=== PATIENT | female | born 1955 | race Caucasian/White ===

== ENCOUNTER 2019-11-11 13:51 | Outpatient (CLI) | payer BC, SELFPAY ==
--- NOTE | ~2019-11-11 | XR_ITS ---
XR shoulder LT min 2V DATE: 11/11/2019 14:13 INDICATION: Left shoulder pain. No injury. TECHNIQUE: 4 views COMPARISON: None FINDINGS: Diffuse osteopenia. No fracture, dislocation, periosteal reaction or bone destruction. There is narrowing at the glenohum eral joint likely consistent with osteoarthritis. IMPRESSION: Osteopenia Degenerative change at the glenohumeral joint Reviewed, dictated and finalized at location A.
--- NOTE | ~2019-11-11 | XR_ITS ---
XR cervical spine min 6V DATE: 11/11/2019 14:13 INDICATION: Neck pain. No injury. TECHNIQUE: Flexion and extension lateral views. AP, open-mouth, lateral, swimmer views COMPARISON: None FINDINGS: There is mild anterolisthesis at C3-C4 in flexion, reduced in neutral and extension. There is moderate degenerative disc disease primarily at C5-6 and C6-7. C1 and C2 are normally aligned and the odontoid process is intact. No fracture or dislocation or lock ed facet or prevertebral soft tissue swelling. IMPRESSION: Mild anterolisthesis at C3-4 in flexion Mild to moderate degenerative disc disease at C5-6 and C6-7 Reviewed, dictated and finalized at location A.
== END 2019-11-11 13:52 | disposition home or self-care (01) ==
PROVIDERS: PCP Family Medicine; Visit Provider Nurse Practitioner
DX: M54.2 Cervicalgia (principal); M25.519 Pain in unspecified shoulder; M43.12 Spondylolisthesis, cervical region; M50.320 Other cervical disc degeneration, mid-cervical region, unspecified level
CPT/HCPCS: 72052; 73030

== ENCOUNTER → 2020-05-06 14:14 | Outpatient (CLI) | payer BC, SELFPAY ==
--- NOTE | ~2020-05-06 | US_ITS ---
EXAMINATION: US venous doppler LE RT DATE: 05/06/2020 14:47 INDICATION: Right lower limb pain and edema. TECHNIQUE: Grayscale ultrasound images without and with compression and Doppler ultrasound images of the right lower extremity veins were obtained. COMPARISON: Ultrasound 01/01/2018 FINDINGS: The visualized portions of right common femoral vein, profunda (deep) femoral vein, femoral vein, pop liteal vein, peroneal veins, posterior tibial veins, and greater saphenous vein outflow are patent. IMPRESSION: 1. No deep venous thrombosis. Reviewed, dictated and finalized at location A. [employer]
== END ==
PROVIDERS: PCP Internal Medicine; Visit Provider Internal Medicine
DX: R60.0 Localized edema (principal)
CPT/HCPCS: 93971

== ENCOUNTER 2021-12-03 06:12 | Emergency (ER) | payer BC, SELFPAY ==
[2021-12-03] VITALS (17 sets, daily range): BP systolic 173; BP diastolic 123; PULSE 102; RESP 16; TEMP 37.2; O2SAT 88–100
--- NOTE | ~2021-12-03 | CT_ITS ---
EXAMINATION: CT abdomen pelvis w con DATE: 12/03/2021 07:50 INDICATION: Mid abdominal severe pain radiating to left side. Nausea and vomiting. TECHNIQUE: Computed tomography (CT) of the abdomen and pelvis was performed with 100 CC Omnipaque 300 intravenous contrast. Automated exposure control and iterative reconstruction technique were employe d. Exam dose: 1549.58 mGy-cm total exam DLP. COMPARISON: 12/16/2011 CT renal scan FINDINGS: The lung bases are clear. Heart size is within normal limits. No pericardial or pleural eff usion. Diffuse hepatic steatosis. The gallbladder is distended. No gallbladder wall thickening or pericholec ystic fluid or fat stranding. No bile duct or pancreatic duct dilatation. No pancreatic mass lesion, calcification. Normal splenic size. Normal morphology of the adrenal glands. There are 3 renal cysts measuring up to 1 cm dimension. No left renal mass lesion. There is extensive calcification of the abdominal aorta but no aneurysm. There is prominent calcifica tion at the origin of the celiac and superior mesenteric and renal arteries. No intraperitoneal or retroperitoneal or pelvic mass lesion or adenopathy or ascites. The uterus, adnexal areas and urinary bladder are unremarkable. Normal appendix. Slight colonic diverticulosis. No diverticulitis. No bowel obstruction, bowel wall t hickening, pneumatosis or intraperitoneal free air. 6 mm left renal cyst. There are prominent irregular areas of diminished contrast enhancement of the renal parenchyma at the mid and upper pole on the left. Diffusion diagnosis includes acute pyelonephritis, infarcts or less likely left renal neoplasm. Correlation with urinalysis is recommended. Prominent degenerative spurring of the lower thoracic spine. Severe degenerative disc disease at L5-S1. Prominent degenerative change at the apophyseal joints wit h associated grade 1 anterolisthesis at L4-5 and L5-S1. No suspicious osteolytic or osteosclerotic lesion is evident. IMPRESSION: Prominent irregular areas of diminished enhancement of the mid and upper left kidney, florez ggesting acute pyelonephritis. Differential diagnosis includes less likely infarction or neoplasm. Cl inical correlation is advised. Follow-up CT imaging or MR examination may be of benefit as clinically appropriate. Hepatic steatosis Small bilateral renal cysts Extensive atherosclerosis Normal appendix Slight diverticulosis of the colon Reviewed, dictated and finalized at Location A. Reviewed, dictated and finalized at location A. IMPRESSION: Prominent irregular areas of diminished enhancement of the mid and upper left kidney, suggesting acute pyelonephritis. Differential diagnosis inc ludes less likely infarction or neoplasm. Clinical correlation is advised. Foll ow-up CT imaging or MR examination may be of benefit as clinically appropriate. Hepatic steatosis Small bilateral renal cysts Extensive atherosclerosis Normal appendix Slight diverticulosis of the colon
[2021-12-03 06:35] LABS: Basophils Percent Auto 0.4 % (0.2-1.2); Eosinophils Percent Auto 0.3 % (0-4.4); Hematocrit 39.5 % (37.0-47.0); Immature Granulocyte Absolute 0.06 K/mm3 (0.00-0.031); Immature Granulocyte Percent A 0.5 % (0-0.5); Lymphocytes Percent Auto 19.9 % (18.3-44.2); Mean Corpuscular HGB Conc 32.9 g/dl (32-36); Mean Corpuscular Hemoglobin 29.5 pg (26-34); Mean Corpuscular Volume 89.6 fl (80-100); Mean Platelet Volume 11.2 fl (7.4-10.4); Monocytes Absolute Auto 0.6 K/mm3 (0.1-0.6); Monocytes Percent Auto 5.2 % (2.6-8.5); Neutrophils Absolute Auto 8.1 K/mm3 (1.3-6.7); Neutrophils Percent Auto 73.7 % (45.5-73.1); Platelet Count Result 319 k/mm3 (150-375); Red Blood Count 4.41 M/mm3 (4.2-5.4); Red Cell Distribution Width 12.7 % (11.5-14.5); White Blood Count 11.1 K/mm3 (4.5-10.0)
[2021-12-03 06:46] LABS: Alanine Aminotransferase 29 U/L (6-35); Albumin Level 4.7 g/dL (3.5-5.1); Alkaline Phosphatase 37 U/L (38-126); Anion Gap 11 mmol/L (8-16); Aspartate Amino Transferase 36 U/L (14-36); Bilirubin,Total 0.5 mg/dL (0.2-1.3); Blood Urea Nitrogen 22 mg/dL (7-17); Calcium 9.7 mg/dL (8.4-10.2); Carbon Dioxide 19 mmol/L (22-30); Chloride 104 mmol/L (98-107); Estimated CRCL calculation 82 ml/min; Estimated Glomerular Filt Rate > 60; Glucose 161 mg/dL (65-110); Lipase 196 U/L (23-300); Potassium 4.3 mmol/L (3.4-5.0); Sodium 134 mmol/L (137-145)
[2021-12-03 07:02] LABS: Appearance Urine Clear (Clear); Bilirubin Urine Negative (Negative); Blood Urine Negative (Negative); Color Urine Yellow (Yellow); Glucose Urine UA Trace mg/dL (Negative); Ketones Urine Negative (Negative); Leukocyte Esterase Ur Negative LEU/UL (Negative); Nitrate Urine Negative (Negative); Protein Urine 1+ mg/dL (Negative); Specific Grav Ur >= 1.030 (1.001-1.035); Urobilinogen Urine 0.2 mg/dL (<2.0); pH Urine 5.5 (5.0-9.0)
[2021-12-03 07:12] LABS: Bacteria Urine Trace /hpf; Mucus Urine Rare /lpf; RBC Urine 0-2 /hpf (0-2); Squamous Epithelial Cell Urine Moderate /hpf (Few)
[2021-12-03 07:14] LABS: Add Urine Microscopic? YES
--- NOTE | 2021-12-03 07:18 | ED.GENADULT ---
HPI - General Adult General Chief complaint: Abdominal Pain Stated complaint: abd pain Time Seen by Provider: 12/03/21 06:51 History of Present Illness HPI narrative: 66-year-old female presenting to the emergency department for evaluation of nausea vomiting with associated abdominal pain. Patient states yesterday she did have [employer] for lunch. Patient states she then began to develop some left lower quadrant pain. Patient did develop some nausea and vomiting later in the day and this has persisted through the night. Patient now describes diffuse abdominal pain with persistent nausea and vomiting. Patient states she is not having any diarrhea. Patient states she is not passing much flatus. Patient denies any prior post surgical history for her abdomen. Related Data Home Medications Medication Instructions Recorded Confirmed evening primrose oil 500 mg capsule 500 mg PO TID 11/11/19 mecobalamin (vitamin B12) 5,000 5,000 mcg PO DAILY 11/11/19 mcg lozenge pyridoxine (vitamin B6) 100 mg 100 mg PO DAILY 11/11/19 tablet Allergies Allergy/AdvReac Type Severity Reaction Status Date / Time levofloxacin Allergy Unknown Muscle Verified 12/03/21 06:15 weakness prednisone Allergy Unknown Other Verified 12/03/21 06:15 Review of Systems Review of Systems: CONSTITUTIONAL: Denies fever, chills, or sweats. EYES: Denies visual changes, redness, or discharge. ENT: Denies rhinorrhea, congestion, sore throat, or otalgia. CARDIOVASCULAR: Denies chest pain, palpitations, or edema. RESPIRATORY: Denies cough or dyspnea. GASTROINTESTINAL: See HPI GENITOURINARY: Suprapubic abdominal pain SKIN: Denies rash or itching. MUSCULOSKELETAL: Denies back pain, joint pain, or myalgia. NEUROLOGIC: Denies headache, numbness, or weakness. [facility] Past Medical History Medical History (Updated 12/03/21 @ 08:48 by Andreas Mars MD) Essential (primary) hypertension Hyperlipidemia, unspecified Sebaceous cyst Spinal stenosis of lumbar region with radiculopathy Surgical History Surgical History (Updated 04/11/19 @ 07:34 by Duran Hamilton MD) History of epidermal inclusion cyst excision Family History Family History (Updated 01/15/18 @ 13:45 by DOCTOR UNKNOWN) Grandparent Diabetes mellitus Family history of cardiovascular disease Acute myocardial infarction Father Family history of osteoporosis Cerebrovascular accident Family history of primary malignant neoplasm of liver Family history of malignant neoplasm of urinary bladder Mother Hypertension Other Family history of arthritis Family history of malignant neoplasm Social History Social History Smoking status: Never smoker Alcohol intake: current Gender identity (if verbalized by the patient): Female Exam Narrative: APPEARANCE: Well appearing, no pain, no distress, well-nourished. HEAD: normocephalic, atraumatic. EYES: PERRLA/EOMI, conjunctivae clear. NOSE: Normal no drainage EARS:TMS clear with good light reflex. THROAT: Pharynx clear, no exudate. NECK: Supple. No adenopathy, no masses. RESPIRATORY: Airway patent, respirations nonlabored. Clear to auscultation bilaterally, no rales, rhonchi, wheezing. CARDIOVASCULAR: Regular rate and rhythm without murmurs rubs or gallops. ABDOMINAL: Normal bowel sounds, no CVA tenderness to palpation. Patient does have suprapubic tenderness to palpation. MUSCULOSKELETAL: Moves all extremities. Strength/ROM intact, No edema, No calf tenderness. NEURO: Alert. Cranial nerves II through XII intact. Grossly intact SKIN: Warm, dry. Normal Color Course Course Emergency Course: Patient was treated for a urinary tract infection. Patient does have a leukocytosis of 11.1. Patient was afebrile. Patient did have trace bacteria trace whites on her UA. CT was concerning for possibility of urinary tract infection versus pyelonephritis. Patient does have reproducible suprapubic tende
[2021-12-03] MEDS: HYDROmorphone HCL INJ (*CRX) 1 MG/ML SYR 0.5 MG IV PUSH (07:30)
[2021-12-03] MEDS: ONDANSETRON INJ 4 MG/2 ML VIAL IV PUSH (07:31)
--- NOTE | 2021-12-14 16:28 | PC.NURSE ---
Addendum entered by Faby Duran RN 12/18/21 10:10: CEftepine infused. zero left in container Original Note: LATE ENTRY This note is being entered to document information to the patient's record. The following information was omitted on [12/03/21], by [Faby Duran RN]. Ceftriaxone infused at 0910.
--- NOTE | 2021-12-18 10:08 | PC.NURSE ---
LATE ENTRY This note is being entered to document information to the patient's record. The following information was omitted on [12/03/21], by [Federica CHONG].
== END 2021-12-03 10:33 | disposition home or self-care (01) ==
PROVIDERS: Emergency Medicine; Emergency Provider Emergency Medicine
DX: N39.0 Urinary tract infection, site not specified (principal); R11.2 Nausea with vomiting, unspecified; I10 Essential (primary) hypertension; E78.5 Hyperlipidemia, unspecified; K57.90 Diverticulosis of intestine, part unspecified, without perforation or abscess without bleeding; N28.1 Cyst of kidney, acquired; K76.0 Fatty (change of) liver, not elsewhere classified
CPT/HCPCS: 36415; 74177; 80053; 81001; 81025; 83690; 85025; 96365; 96375; 99284; J0696; J1170; J2405; Q9967

== ENCOUNTER 2021-12-03 17:09 | Observation (INO) | payer BC, SELFPAY ==
--- NOTE | ~2021-12-03 | NM_ITS ---
EXAMINATION: NM hepatobiliary w pharm DATE: 12/05/2021 13:11 INDICATION: Nausea and vomiting COMPARISON: Ultrasound dated 12/05/2021 TECHNIQUE: 5.2 mCi Tc-99m mebrofenin (Choletec) was administered intravenously. Scintigraphic images of the abdomen were obtained for one hour. 2.7 mcg sincalide (Kinevac) was administered by slow intr avenous infusion, and imaging was continued for 30 minutes. Gallbladder ejection fraction was calcula abi by the technologist. FINDINGS: There is normal clearance of radiotracer from the blood pool. There is homogeneous tracer uptake by t he liver. Activity progresses to the gallbladder and bowel. The gallbladder ejection fraction (GBEF) is 69% (normal 10-90%, but most patient with gallbladder dysfunction have GBEF < 35% which does over lap with the normal range). IMPRESSION: 1. Normal hepatobiliary scan. Reviewed, dictated and finalized at location A.
--- NOTE | ~2021-12-03 | US_ITS ---
EXAMINATION: US renal BI DATE: 12/04/2021 11:14 INDICATION: Abnormal kidney on CT scan TECHNIQUE: Multiple grayscale and Doppler ultrasound images of the kidneys were obtained. COMPARISON: CT abdomen and pelvis 12/03/2021. FINDINGS: The right kidney measures 11.5 x 4.9 x 6.7 cm. The left kidney measures 11.5 x 5.3 x 6.4 cm. The kidn eys demonstrate normal parenchymal echogenicity.No sonographic evidence of nephrolithiasis. No mass. No hydronephrosis. The bladder is normal. Bilateral ureteral jets IMPRESSION: 1. Normal renal sonogram findings. 2. Abnormalities detected by CT are not sonographically visible, prior recommendations are unchanged. Reviewed, dictated and finalized at location K. IMPRESSION: 1. Normal renal sonogram findings. 2. Abnormalities detected by CT are not sonographically visible, prior recommen dations are unchanged.
--- NOTE | ~2021-12-03 | US_ITS ---
EXAMINATION: US abdomen limited DATE: 12/05/2021 11:31 INDICATION: Nausea and vomiting TECHNIQUE: Multiple grayscale and Doppler ultrasound images of the abdomen were obtained. COMPARISON: CT dated 12/03/2021 FINDINGS: The pancreatic head and body are normal in appearance. The pancreatic tail is not visualized. Liver has normal contour, with a smooth surface. There is increased parenchymal echogenicity and coarsened echotexture consistent with diffuse hepatic steatosis. No liver lesion identified. No intrahepatic b iliary duct dilation suspected. Portal venous flow was seen in the hepatopetal, normal direction and has normal Doppler waveform. The gallbladder is normal in appearance. There is no cholelithiasis. Th e common bile duct measures 6 mm, which is normal. Sonographic Uribe sign was reported as negative b y the satellite installation technician. Visualized portion of the right kidney demonstrates normal echogenicity and contou r with no hydronephrosis. Corticomedullary IMPRESSION: 1. Diffuse hepatic steatosis. Reviewed, dictated and finalized at location A.
[2021-12-03 17:11] VITALS: BP 180/98; PULSE 73; RESP 20; TEMP 36.6; O2SAT 98
--- NOTE | 2021-12-03 17:33 | ED.GENADULT ---
HPI - General Adult General Chief complaint: Nausea/Vomiting/Diarrhea Stated complaint: N/V UTI 2ND VISIT Time Seen by Provider: 12/03/21 17:23 History of Present Illness HPI narrative: 66-year-old female returning to the emergency department for evaluation of persistent nausea and vomiting. Patient was evaluated emergency department earlier in the day and was diagnosed with a urinary tract infection. Patient states that when going home she had attempted to eat solid food including scrambled eggs and had subsequent nausea and vomiting. Patient became concerned so she presented to the emergency department for reevaluation. Related Data Home Medications Medication Instructions Recorded Confirmed evening primrose oil 500 mg capsule 500 mg PO BID 11/11/19 12/03/21 mecobalamin (vitamin B12) 5,000 5,000 mcg PO DAILY 11/11/19 12/03/21 mcg lozenge atorvastatin 20 mg tablet 20 mg PO DAILY 12/03/21 12/03/21 fenofibrate micronized 134 mg 134 mg PO QPM 12/03/21 12/03/21 capsule zolpidem 5 mg tablet 5 mg PO HS PRN sleep 12/03/21 12/03/21 Allergies Allergy/AdvReac Type Severity Reaction Status Date / Time levofloxacin Allergy Unknown Muscle Verified 12/03/21 19:51 weakness Review of Systems Review of Systems: CONSTITUTIONAL: Denies fever, chills, or sweats. EYES: Denies visual changes, redness, or discharge. ENT: Denies rhinorrhea, congestion, sore throat, or otalgia. CARDIOVASCULAR: Denies chest pain, palpitations, or edema. RESPIRATORY: Denies cough or dyspnea. GASTROINTESTINAL: See HPI GENITOURINARY: Denies dysuria or hematuria. SKIN: Denies rash or itching. MUSCULOSKELETAL: Denies back pain, joint pain, or myalgia. NEUROLOGIC: Denies headache, numbness, or weakness. [facility] Past Medical History Medical History Essential (primary) hypertension Hyperlipidemia, unspecified Sebaceous cyst Spinal stenosis of lumbar region with radiculopathy Surgical History Surgical History History of epidermal inclusion cyst excision Family History Family History Grandparent Diabetes mellitus Family history of cardiovascular disease Acute myocardial infarction Father Family history of osteoporosis Cerebrovascular accident Family history of primary malignant neoplasm of liver Family history of malignant neoplasm of urinary bladder Mother Hypertension Other Family history of arthritis Family history of malignant neoplasm Social History Social History Smoking status: Never smoker Alcohol intake: never Substance use: never Substance use type: does not use Gender identity (if verbalized by the patient): Female Spiritual care concerns: No Exam Narrative: APPEARANCE: Well appearing, no pain, no distress, well-nourished. HEAD: normocephalic, atraumatic. EYES: PERRLA/EOMI, conjunctivae clear. NOSE: Normal no drainage NECK: Supple. No adenopathy, no masses. RESPIRATORY: Airway patent, respirations nonlabored. Clear to auscultation bilaterally, no rales, rhonchi, wheezing. CARDIOVASCULAR: Regular rate and rhythm without murmurs rubs or gallops. ABDOMINAL: Soft, suprapubic tenderness to palpation. No CVA tenderness to palpation. MUSCULOSKELETAL: Moves all extremities. Strength/ROM intact, No edema, No calf tenderness. NEURO: Alert. Cranial nerves II through XII intact. Grossly intact SKIN: Warm, dry. Normal Color PSYCHIATRIC: Normal affect/mood. Course Course Emergency Course: Discussed case with the hospitalist and patient will be admitted for treatment for nausea vomiting and suspected urinary tract infection. Additional inpatient work-up as needed. Patient was updated on the results of the labs and imaging. All questions concerns were address
[2021-12-03 17:46] VITALS: BP 178/80; PULSE 81; RESP 20; O2SAT 98
[2021-12-03 17:52] LABS: Basophils Percent Auto 0.2 % (0.2-1.2); Eosinophils Percent Auto 0.1 % (0-4.4); Hematocrit 38.8 % (37.0-47.0); Hemoglobin 12.8 g/dL (12.0-15.0); Immature Granulocyte Absolute 0.07 K/mm3 (0.00-0.031); Immature Granulocyte Percent A 0.4 % (0-0.5); Lymphocytes Absolute Auto 1.97 K/mm3 (0.9-3.2); Lymphocytes Percent Auto 12.5 % (18.3-44.2); Mean Corpuscular Hemoglobin 29.5 pg (26-34); Mean Corpuscular Volume 89.4 fl (80-100); Mean Platelet Volume 10.6 fl (7.4-10.4); Monocytes Percent Auto 6.3 % (2.6-8.5); Neutrophils Absolute Auto 12.7 K/mm3 (1.3-6.7); Neutrophils Percent Auto 80.5 % (45.5-73.1); Platelet Count Result 292 k/mm3 (150-375); Red Blood Count 4.34 M/mm3 (4.2-5.4); Red Cell Distribution Width 12.7 % (11.5-14.5); White Blood Count 15.8 K/mm3 (4.5-10.0)
--- NOTE | 2021-12-03 17:57 | PM.IMHP ---
H&P: HPI History of Present Illness Date/Time: 12/03/21 17:45 Chief Complaint: Abdominal pain with nausea and vomiting Narrative: this 66-year-old female patient with significant past medical history of hypertension, hyperlipidemia, spinal stenosis, sebaceous cyst, B12 deficiency presents to the emergency room independently ambulatory for the 2nd time today with complaints of having lower abdominal pain with nausea and vomiting. Patient was evaluated earlier this morning with complaints of having acute nausea and vomiting beginning yesterday afternoon after eating [employer]. This was accompanied by left lower quadrant abdominal pain that moved to suprapubic. She denied any diarrhea. Presenting to the emergency room workup was performed that showed mild leukocytosis, trace bacteria wbc's in UA and CT of the abdomen and pelvis demonstrated UTI versus pyelo. Patient was given an oral challenge as well as medications and she had interval improvement while here in the emergency room and was therefore discharged home on a clear liquid diet, Zofran and Keflex. Upon returning home she did not adhere to the diet instructions and ate solid food or attempted to eat solid food and the patient began having nausea with vomiting again. She returned to the emergency room stating she does not want to continue to feel like this this evening. She denies any chest pain and/or dyspnea or urinary complaints of burning urgency frequency or hematuria but she does have complaints of some pain in her back that is different than her normal pain she has with spinal stenosis. She is agreeable to admission at this time for IV hydration, treatment for the suggested pyelonephritis that was noted on CT scan and for pain control. Review of Systems Review of Systems: All systems reviewed & are unremarkable except as noted in HPI and below PMFSH Past Medical History Medical History Essential (primary) hypertension Hyperlipidemia, unspecified Sebaceous cyst Spinal stenosis of lumbar region with radiculopathy Surgical History Surgical History History of epidermal inclusion cyst excision Family History Family History Grandparent Diabetes mellitus Family history of cardiovascular disease Acute myocardial infarction Father Family history of osteoporosis Cerebrovascular accident Family history of primary malignant neoplasm of liver Family history of malignant neoplasm of urinary bladder Mother Hypertension Other Family history of arthritis Family history of malignant neoplasm Social History Social History Smoking status: Never smoker Alcohol intake: current Gender identity (if verbalized by the patient): Female Meds Home Medications and Allergies Home Medications Medication Instructions Recorded Confirmed Type zolpidem 5 mg tablet See Rx Instructions PO .at bedtime 08/15/19 Rx PRN sleep #30 tabs evening primrose oil 500 mg capsule 500 mg PO TID 11/11/19 History mecobalamin (vitamin B12) 5,000 5,000 mcg PO DAILY 11/11/19 History mcg lozenge pyridoxine (vitamin B6) 100 mg 100 mg PO DAILY 11/11/19 History tablet metoprolol tartrate 50 mg tablet 50 mg PO BID #180 tabs 12/11/19 Rx lisinopril 20 mg tablet 20 mg PO BID #180 tabs 12/31/19 Rx fenofibrate micronized 134 mg See Rx Instructions .Route 05/25/20 Rx capsule .COMPLEX #90 caps atorvastatin 20 mg tablet See Rx Instructions .Route 09/14/20 Rx .COMPLEX #90 tabs cephalexin 250 mg capsule 250 mg PO Q6H 7 days #28 caps 12/03/21 Rx ondansetron 4 mg disintegrating 4 mg PO Q8H PRN nausea and 12/03/21 Rx tablet vomiting #14 tabs Allergies Allergy/AdvReac Type Severity Reaction Status Date / Time levof
[2021-12-03] MEDS: ONDANSETRON INJ 4 MG/2 ML VIAL IV PUSH ×2 (17:58→22:09)
[2021-12-03 18:02] LABS: Alanine Aminotransferase 35 U/L (6-35); Albumin Level 4.5 g/dL (3.5-5.1); Alkaline Phosphatase 39 U/L (38-126); Anion Gap 8 mmol/L (8-16); Aspartate Amino Transferase 54 U/L (14-36); Bilirubin,Total 0.5 mg/dL (0.2-1.3); Blood Urea Nitrogen 19 mg/dL (7-17); Calcium 9.6 mg/dL (8.4-10.2); Carbon Dioxide 24 mmol/L (22-30); Chloride 102 mmol/L (98-107); Estimated Glomerular Filt Rate > 60; Glucose 138 mg/dL (65-110); Potassium 4.2 mmol/L (3.4-5.0); Sodium 134 mmol/L (137-145)
[2021-12-03] MEDS: METOCLOPRAMIDE HCL INJ 10 MG/2 ML VIAL IV PUSH (18:33)
[2021-12-03 18:50] LABS: SARS-CoV-2 RNA PCR Negative
--- NOTE | 2021-12-03 19:49 | ADMGEN ---
This patient, Allyson Dunn, was admitted to 2 Medical Room 250-01 @ 1950 Patient/family oriented to hospital policies and general routines including ID bracelet, bed and alarms, visiting hours, pain management, procedures, bathroom and other care routines, personal items, smoking policy, room service/diet, and visiting hours. Information on how to activate the Rapid Response Team has been discussed. Patient/Family are encouraged to report perceived risks to care and to ask questions if they do not understand what they are told or what they should do.
[2021-12-03] MEDS: SODIUM CHLORIDE 0.9% IV 1,000 ML 100 ML IV CONT (20:02)
[2021-12-03 21:17] VITALS: PULSE 67
[2021-12-03 21:18] VITALS: BP 151/69; PULSE 71; RESP 20; TEMP 36.5; O2SAT 98; BMI 39.7
[2021-12-03 22:00] VITALS: PULSE 78; RESP 16; O2SAT 97
[2021-12-03] MEDS: KETOROLAC 30 MG/ML VIAL (*BKC) IV PUSH (22:05)
[2021-12-03] MEDS: ZOLPIDEM TARTRATE (*CRX) 5 MG TABLET PO (22:09)
[2021-12-04] VITALS (12 sets, daily range): BP systolic 124–155; BP diastolic 68–75; PULSE 55–82; RESP 15–18; TEMP 36.4–36.9; O2SAT 97–99
[2021-12-04 05:16] LABS: Basophils Percent Auto 0.2 % (0.2-1.2); Eosinophils Absolute Auto 0.1 K/mm3 (0-0.3); Eosinophils Percent Auto 0.6 % (0-4.4); Hemoglobin 11.3 g/dL (12.0-15.0); Immature Granulocyte Absolute 0.03 K/mm3 (0.00-0.031); Immature Granulocyte Percent A 0.3 % (0-0.5); Lymphocytes Percent Auto 30.2 % (18.3-44.2); Mean Corpuscular HGB Conc 31.4 g/dl (32-36); Mean Corpuscular Hemoglobin 29.1 pg (26-34); Mean Corpuscular Volume 92.8 fl (80-100); Mean Platelet Volume 10.4 fl (7.4-10.4); Monocytes Absolute Auto 1.1 K/mm3 (0.1-0.6); Neutrophils Absolute Auto 6.6 K/mm3 (1.3-6.7); Neutrophils Percent Auto 58.7 % (45.5-73.1); Platelet Count Result 232 k/mm3 (150-375); Red Blood Count 3.88 M/mm3 (4.2-5.4); White Blood Count 11.3 K/mm3 (4.5-10.0)
[2021-12-04 05:30] LABS: Alanine Aminotransferase 30 U/L (6-35); Albumin Level 3.7 g/dL (3.5-5.1); Alkaline Phosphatase 34 U/L (38-126); Anion Gap 3 mmol/L (8-16); Aspartate Amino Transferase 45 U/L (14-36); Bilirubin,Total 0.3 mg/dL (0.2-1.3); Blood Urea Nitrogen 19 mg/dL (7-17); Calcium 8.7 mg/dL (8.4-10.2); Carbon Dioxide 27 mmol/L (22-30); Chloride 104 mmol/L (98-107); Estimated CRCL calculation 68 ml/min; Estimated Glomerular Filt Rate 50; Glucose 114 mg/dL (65-110); Lipase 104 U/L (23-300); Magnesium 1.8 mg/dL (1.6-2.3); Potassium 4.2 mmol/L (3.4-5.0); Sodium 134 mmol/L (137-145)
[2021-12-04] MEDS: KETOROLAC 30 MG/ML VIAL (*BKC) IV PUSH (05:33)
[2021-12-04] MEDS: SODIUM CHLORIDE 0.9% IV 1,000 ML 100 ML IV CONT (05:34)
[2021-12-04] MEDS: ENOXAPARIN 40 MG/0.4 ML SYRINGE SUB-Q (09:42)
[2021-12-04] MEDS: ATORVASTATIN 20 MG TABLET PO (09:43)
[2021-12-04] MEDS: CYANOCOBALAMIN 1,000 MCG TABLET 5000 MCG PO (09:43)
[2021-12-04] MEDS: PYRIDOXINE HCL 50 MG TABLET 100 MG PO (09:43)
[2021-12-04] MEDS: METOPROLOL TARTRATE 50 MG TAB PO ×2 (09:43→16:42)
[2021-12-04] MEDS: FENOFIBRATE 160 MG TABLET PO (09:44)
--- NOTE | 2021-12-04 10:16 | PM.IMPN ---
Progress Note: A&P Assessment and Plan (1) Pyelonephritis: Code(s): N12 - Tubulo-interstitial nephritis, not specified as acute or chronic Status: Acute Assessment and Plan: Urinalysis only mildly abnormal, recheck today, follow urine cultures Prominent irregular areas suggesting acute pyelonephritis noted on CT scan, however, clinical picture does not correlate Continue Rocephin for now Renal ultrasound ordered and pending Consider nephrology consultation 12/04: Do not suspect pyelonephritis, follow-up renal ultrasound, follow-up FeNa labs and repeat urinalysis (2) Acute UTI: Code(s): N39.0 - Urinary tract infection, site not specified Status: Inactive Assessment and Plan: Plan as above 12/04: Unsure if this is a UTI, follow-up repeat urinalysis (3) N&V (nausea and vomiting): Code(s): R11.2 - Nausea with vomiting, unspecified Status: Inactive Assessment and Plan: Unsure of etiology, working diagnosis is pyelonephritis, however, clinical picture is less clear 12/04: Concern for possible gallbladder etiology, check right upper quadrant ultrasound, HIDA scan (4) Hyperlipidemia, unspecified: Qualifiers: Hyperlipidemia type: unspecified Qualified Code(s): E78.5 - Hyperlipidemia, unspecified Code(s): E78.5 - Hyperlipidemia, unspecified Status: Chronic Assessment and Plan: Continue statin and fenofibrate therapy (5) Essential (primary) hypertension: Code(s): I10 - Essential (primary) hypertension Status: Chronic Assessment and Plan: Continue home medications of lisinopril 20 mg twice daily, metoprolol tartrate 50 mg BID (6) Spinal stenosis of lumbar region with radiculopathy: Code(s): M48.061 - Spinal stenosis, lumbar region without neurogenic claudication; M54.16 - Radiculopathy, lumbar region Status: Chronic Assessment and Plan: PRN pain medications (7) Hyponatremia: Code(s): E87.1 - Hypo-osmolality and hyponatremia Status: Acute Assessment and Plan: Unsure of etiology, mild, check FeNa and urine and serum osmolality Discontinue IV fluids, sodium unchanged when given normal saline 100 mL overnight, creatinine did increase a bit suggesting possible kidney congestion 12/04: Follow-up labs, see above for further plan Subjective Date/time seen: 12/04/21 10:16 Interval history: Patient states she feels much better today, however, she has had these symptoms in the past. She is worried it could be her gallbladder and will come back when she goes home. She also states she has a history of kidney cancer in her family in several members and so she is worried about the abnormality noted on the CT scan of her kidney. She denies any dysuria, suprapubic tenderness, hematuria, burning with urination. She denies flank pain, chest pain shortness a breath. No fevers or chills. No sick contacts, no recent travel. She states her symptoms started after eating [employer], but then they continued to recur after eating anything. No overnight events noted. No chest pain or shortness of breath. No nausea, vomiting or diarrhea so far today, but she states this is likely because she has not eaten anything. No fevers or chills. Review of Systems Review of Systems: All systems reviewed & are unremarkable except as noted in HPI and below Exam Narrative: General: No acute distress, alert and oriented per baseline HEENT: Atraumatic, normocephalic, mucous membranes moist CV: Regular rate and rhythm, S1, S2 no murmurs rubs or gallops noted Lungs: Clear to auscultation bilaterally, no rales or crackles noted, no wheezes, good air entry Abdomen: Soft, nontender, nondistended Extremities: Normal to inspection Skin: No rashes noted, no lesions or wounds seen Psych: Euthymic, normal affect Neuro: Cranial nerves 2-12 grossly intact, strength +5/5 upper and lower extremities bilaterally Objectiv
[2021-12-04 11:57] LABS: Anion Gap 6 mmol/L (8-16); Blood Urea Nitrogen 19 mg/dL (7-17); Calcium 8.9 mg/dL (8.4-10.2); Carbon Dioxide 26 mmol/L (22-30); Chloride 102 mmol/L (98-107); Estimated CRCL calculation 68 ml/min; Estimated Glomerular Filt Rate 50; Glucose 138 mg/dL (65-110); Sodium 134 mmol/L (137-145)
[2021-12-04] MEDS: ACETAMINOPHEN 325 MG TABLET 650 MG PO ×2 (12:03→21:19)
[2021-12-04] MEDS: LORATADINE 10 MG TABLET PO (18:16)
[2021-12-04] MEDS: MELATONIN 5 MG TABLET PO (21:20)
[2021-12-05] VITALS (7 sets, daily range): BP systolic 127–159; BP diastolic 68–82; PULSE 56–82; RESP 18; TEMP 36.8–36.9; O2SAT 98–100
[2021-12-05] MEDS: PYRIDOXINE HCL 50 MG TABLET 100 MG PO (08:41)
[2021-12-05] MEDS: ENOXAPARIN 40 MG/0.4 ML SYRINGE SUB-Q (08:41)
[2021-12-05] MEDS: CYANOCOBALAMIN 1,000 MCG TABLET 5000 MCG PO (08:41)
[2021-12-05] MEDS: METOPROLOL TARTRATE 50 MG TAB PO (08:41)
[2021-12-05] MEDS: ATORVASTATIN 20 MG TABLET PO (08:42)
[2021-12-05] MEDS: LORATADINE 10 MG TABLET PO (08:42)
[2021-12-05] MEDS: FENOFIBRATE 160 MG TABLET PO (08:42)
[2021-12-05 08:55] LABS: Hematocrit 37.1 % (37.0-47.0); Hemoglobin 11.8 g/dL (12.0-15.0); Mean Corpuscular HGB Conc 31.8 g/dl (32-36); Mean Corpuscular Hemoglobin 29.4 pg (26-34); Mean Corpuscular Volume 92.3 fl (80-100); Mean Platelet Volume 10.4 fl (7.4-10.4); Platelet Count Result 220 k/mm3 (150-375); Red Blood Count 4.02 M/mm3 (4.2-5.4); Red Cell Distribution Width 12.6 % (11.5-14.5); White Blood Count 7.9 K/mm3 (4.5-10.0)
[2021-12-05 09:11] LABS: Anion Gap 5 mmol/L (8-16); Blood Urea Nitrogen 16 mg/dL (7-17); Calcium 9.1 mg/dL (8.4-10.2); Carbon Dioxide 26 mmol/L (22-30); Chloride 104 mmol/L (98-107); Estimated CRCL calculation 74 ml/min; Estimated Glomerular Filt Rate 55; Glucose 121 mg/dL (65-110); Sodium 135 mmol/L (137-145)
[2021-12-05 12:15] LABS: Creatinine Urine 57.9 mg/dL
[2021-12-05 12:16] LABS: Appearance Urine Slightly Cloudy (Clear); Bilirubin Urine Negative (Negative); Blood Urine Negative (Negative); Color Urine Yellow (Yellow); Glucose Urine UA Negative (Negative); Ketones Urine Negative (Negative); Leukocyte Esterase Ur Negative LEU/UL (NEGATIVE); Nitrate Urine Negative (Negative); Protein Urine Negative (Negative); Sodium Urine Random 67 meq/L; Specific Grav Ur 1.015 (1.001-1.035); Urobilinogen Urine 0.2 mg/dL (<2.0)
[2021-12-05 12:29] LABS: Add Urine Microscopic? YES
[2021-12-05 12:32] LABS: RBC Urine 0-2 /hpf (0-2); Squamous Epithelial Cell Urine Few /hpf (Few); WBC Urine 0-3 /hpf (0-3)
--- NOTE | 2021-12-05 15:12 | PM.DS ---
DS: Admitting Diagnosis Discharge Date 12/05/2021 Admitting Diagnosis Nausea and vomiting DS: Discharge Diagnosis Discharge Diagnosis (1) Pyelonephritis: Code(s): N12 - Tubulo-interstitial nephritis, not specified as acute or chronic Status: Acute Assessment and Plan: Presented with nausea, vomiting, lower abdominal pain and suprapubic discomfort. CT scan findings concerning for pyelonephritis UA was just slightly abnormal on presentation and did not reflex to culture. Urine culture was not collected She was started on IV ceftriaxone with resolution of leukocytosis. Patient remained afebrile. Repeat UA was normal Will continue p.o. cefdinir for 5 additional days (2) Abnormal CT scan, kidney: Code(s): R93.429 - Abnormal radiologic findings on diagnostic imaging of unspecified kidney Status: Acute Assessment and Plan: CT of the abdomen/pelvis showed prominent irregular areas of diminished enhancement of the mid and upper left kidney suggestive of acute pyelonephritis. Differential diagnosis included less likely infarction or neoplasm. Patient does have family history of renal cancer Renal ultrasound did not detect any abnormalities Will plan for repeat CT of the abdomen/pelvis with contrast in 4 weeks Would expect if findings related to pyelonephritis that this would be resolved on repeat. If findings are persistent, patient may benefit from follow-up MRI for further evaluation (3) N&V (nausea and vomiting): Code(s): R11.2 - Nausea with vomiting, unspecified Status: Inactive Assessment and Plan: May have been related to pyelonephritis. Patient also reports eating fast food burrito for lunch that she said may have triggered these symptoms. Abdominal ultrasound with normal gallbladder, no cholelithiasis, normal common bile duct HIDA scan was normal Nausea and vomiting resolved. Patient was able to tolerate a bland diet (4) Hyperlipidemia, unspecified: Qualifiers: Hyperlipidemia type: unspecified Qualified Code(s): E78.5 - Hyperlipidemia, unspecified Code(s): E78.5 - Hyperlipidemia, unspecified Status: Chronic Assessment and Plan: No acute issues Continue home medication regimen (5) Essential (primary) hypertension: Code(s): I10 - Essential (primary) hypertension Status: Chronic Assessment and Plan: Blood pressures were elevated above target at times Suspect elevation was secondary to anxiety related to hospitalization. Appears that blood pressures are typically well controlled on medication regimen Continue metoprolol tartrate and lisinopril (6) Spinal stenosis of lumbar region with radiculopathy: Code(s): M48.061 - Spinal stenosis, lumbar region without neurogenic claudication; M54.16 - Radiculopathy, lumbar region Status: Chronic Assessment and Plan: No acute issues Continue analgesics as needed DS: Summary Hospital Course Hospital Course: Date of admission: 12/03/2021 Date of discharge: 12/05/2021 Allyson Dunn is a 66-year-old female with history of hypertension, hyperlipidemia, and spinal stenosis who presented to the emergency department on 12/03/2021 with complaints of nausea and vomiting. She had been seen earlier in the morning for the same complaint and was discharged with p.o. antibiotics for suspected UTI given abnormal UA. Unfortunately, her nausea and vomiting persisted and she returned to the ED. On presentation, her vital signs were stable, [place] [address], creatinine 1.1. She was admitted to the hospitalist service for further evaluation and management. Please see above for further details. Her nausea and vomiting resolved. She was treated with antibiotics for pyelonephritis and will continue with p.o. antibiotics as an outpatient. She will have a follow-up CT scan in 4 weeks. Unfortunately, her primary care provider recently retired and she
[2021-12-08 12:36] LABS: Osmolality, Urine 326 mOsm/kg (50-1200)
== END 2021-12-05 16:20 | disposition home or self-care (01) ==
LOC: ANHED 17:37 → ANH2MED 18:22
PROVIDERS: Nurse Practitioner Adult Health; Student in an Organized Health Care Education/Training Program; Admitting Provider Internal Medicine; Emergency Provider Emergency Medicine; Visit Provider Physician Assistant
DX: N12 Tubulo-interstitial nephritis, not specified as acute or chronic (principal); R93.429 Abnormal radiologic findings on diagnostic imaging of unspecified kidney; R11.2 Nausea with vomiting, unspecified; E78.5 Hyperlipidemia, unspecified; I10 Essential (primary) hypertension; M48.061 Spinal stenosis, lumbar region without neurogenic claudication; M54.6 Pain in thoracic spine; N39.0 Urinary tract infection, site not specified; R19.7 Diarrhea, unspecified; K76.0 Fatty (change of) liver, not elsewhere classified; E53.8 Deficiency of other specified B group vitamins; R10.32 Left lower quadrant pain; Z20.822 Contact with and (suspected) exposure to COVID-19; D72.829 Elevated white blood cell count, unspecified; Z80.51 Family history of malignant neoplasm of kidney; Z79.899 Other long term (current) drug therapy
CPT/HCPCS: 36415; 76705; 76775; 78227; 80048; 80053; 81001; 82570; 83690; 83735; 83930; 83935; 84300; 85025; 85027; 96361; 96365; 96372; 96374; 96375; 96376; 99285; A9270; A9537; C9803; G0378; J0696; J1650; J1885; J2405; J2765; J2805; J7030; U0003; U0005

== ENCOUNTER 2021-12-26 10:25 | Emergency (ER) | payer BC, SELFPAY ==
--- NOTE | 2021-12-26 10:34 | ED.ABDPAIN ---
HPI - Abdominal Pain General Chief Complaint: Abdominal Pain Stated Complaint: nausea, vomitting,stomach pain Time Seen by Provider: 12/26/21 10:50 Source: patient and RN notes reviewed Mode of arrival: ambulatory Limitations: no limitations History of Present Illness HPI narrative: 66 y/o female presented for c/o left flank pain for 5 days, worse since yesterday. Endorses nausea and vomiting at the onset lasting 3 days. Pain is 1-2 at rest, but with palpation to left side and certain position changes, the pain is 8/10. Last emesis 2 days ago, LBM 3 days ago after suppository laxative. She has continued a clear liquid diet. Denies fever, chills, hematemesis, hematochezia, chest pain, cough or shortness of breath. Pt had been hospitalized 12/03-12/05 for similar symptoms, treated for pyelonephritis. She has since followed up with pcp. She needs a repeat CT within 4 weeks from discharge. Pt has a family history of renal cancer. States she called her PCP today but they cannot see her for 2 more days. Related Data Home Medications Medication Instructions Recorded Confirmed evening primrose oil 500 mg capsule 500 mg PO BID 11/11/19 12/03/21 atorvastatin 20 mg tablet 20 mg PO DAILY 12/03/21 12/03/21 fenofibrate micronized 134 mg 134 mg PO QPM 12/03/21 12/03/21 capsule calcium carbonate 600 mg calcium 600 mg PO DAILY 12/20/21 (1,500 mg) tablet (Calcium) esomeprazole magnesium 20 mg 20 mg PO DAILY 12/20/21 capsule,delayed release njjwqwle-lpd-tovti ac 400 tablet PO 12/20/21 mcg-calcium carb 500 mg-vit K1 20 mcg tablet (Women's 50 Plus Multivitamin) Allergies Allergy/AdvReac Type Severity Reaction Status Date / Time levofloxacin Allergy Unknown Muscle Verified 12/26/21 10:43 weakness cefdinir Allergy Joint Pain Verified 12/26/21 10:43 Review of Systems Review of Systems: CONSTITUTIONAL: Denies body aches, fever, chills ENT: Denies rhinorrhea, congestion CARDIOVASCULAR: Denies chest pain, palpitations, or edema. RESPIRATORY: Denies cough or dyspnea. GASTROINTESTINAL: Endorses CVA tenderness Denies hematochezia, melena, hematemesis GENITOURINARY: Denies dysuria, hematuria, or SKIN: Denies rash, itching, or wounds. MUSCULOSKELETAL: Denies joint pain, or myalgia. NEUROLOGIC: Denies headache, numbness, tingling, or weakness. All systems reviewed & are unremarkable except as noted in HPI and below PMFSH Past Medical History Medical History Allergies Arthritis Essential (primary) hypertension GERD with esophagitis Hyperlipidemia, unspecified Hypertension Insomnia Melanoma Sebaceous cyst Spinal stenosis of lumbar region with radiculopathy Surgical History Surgical History History of epidermal inclusion cyst excision Family History Family History Grandparent Diabetes mellitus Family history of cardiovascular disease Acute myocardial infarction Father Family history of osteoporosis Cerebrovascular accident Family history of primary malignant neoplasm of liver Family history of malignant neoplasm of urinary bladder Mother Hypertension Other Family history of arthritis Family history of malignant neoplasm Social History Social History Smoking status: Never smoker Alcohol intake: never Substance use: never Substance use type: does not use Gender identity (if verbalized by the patient): Female Spiritual care concerns: No Comments At time of signature, I have reviewed and agree with nursing past medical, surgical, social and family history unless otherwise noted. Please see nursing chart for further information. There is no relevant family history pertinent to the presenting complaint Exam Narrative: GENERAL: Well-
[2021-12-26 10:45] VITALS: BP 128/79; PULSE 81; RESP 14; TEMP 36.4; O2SAT 98
== END 2021-12-26 11:46 | disposition short-term general hospital (02) ==
PROVIDERS: Emergency Provider Nurse Practitioner Family; PCP Family Medicine
DX: R10.9 Unspecified abdominal pain (principal); M19.90 Unspecified osteoarthritis, unspecified site; I10 Essential (primary) hypertension; K21.00 Gastro-esophageal reflux disease with esophagitis, without bleeding; E78.5 Hyperlipidemia, unspecified; M48.061 Spinal stenosis, lumbar region without neurogenic claudication; M54.16 Radiculopathy, lumbar region; Z85.820 Personal history of malignant melanoma of skin
CPT/HCPCS: 81003; 99212; G0463

== ENCOUNTER 2021-12-26 12:16 | Emergency (ER) | payer BC, SELFPAY ==
[2021-12-26] VITALS (12 sets, daily range): BP systolic 128–164; BP diastolic 73–90; PULSE 82–87; RESP 14–18; TEMP 36.6; O2SAT 96–100
--- NOTE | ~2021-12-26 | CT_ITS ---
EXAMINATION: CT abdomen pelvis w con DATE: 12/26/2021 15:26 INDICATION: Flank pain. Nausea and vomiting. TECHNIQUE: Computed tomography (CT) of the abdomen and pelvis was performed with 100 cc Omnipaque 350 intravenous contrast. The dose-length product was 1468.58 mGy-cm. Automated exposure control and ite rative reconstruction technique were employed. COMPARISON: CT dated 12/03/2021. FINDINGS: Lung bases are unremarkable. Heart size normal. Small cysts adjacent to the right pulmonary vein, likely duplication cyst. Fatty infiltration of the liver. The spleen, pancreas, adrenal glands and kidneys are unremarkable. There are small subcentimeter hypodensities of both kidneys, most like ly benign cysts. Gallbladder is present. There is atherosclerosis of the aorta without evidence for a neurysm. Nonobstructive bowel pattern. No ureteral stones or hydronephrosis. No abnormal pelvic karen s or fluid collections. No free air or free fluid. IMPRESSION: 1. No acute abdominal abnormality. Reviewed, dictated and finalized at location A.
[2021-12-26 12:40] LABS: Basophils Absolute Auto 0.1 K/mm3 (0.0-0.1); Basophils Percent Auto 0.6 % (0.2-1.2); Eosinophils Absolute Auto 0.1 K/mm3 (0-0.3); Eosinophils Percent Auto 1.3 % (0-4.4); Hematocrit 41.3 % (37.0-47.0); Hemoglobin 13.5 g/dL (12.0-15.0); Immature Granulocyte Absolute 0.02 K/mm3 (0.00-0.031); Immature Granulocyte Percent A 0.2 % (0-0.5); Lymphocytes Absolute Auto 2.66 K/mm3 (0.9-3.2); Lymphocytes Percent Auto 26.1 % (18.3-44.2); Mean Corpuscular HGB Conc 32.7 g/dl (32-36); Mean Corpuscular Hemoglobin 29.2 pg (26-34); Mean Corpuscular Volume 89.2 fl (80-100); Mean Platelet Volume 10.7 fl (7.4-10.4); Monocytes Absolute Auto 0.9 K/mm3 (0.1-0.6); Monocytes Percent Auto 9.2 % (2.6-8.5); Neutrophils Absolute Auto 6.4 K/mm3 (1.3-6.7); Neutrophils Percent Auto 62.6 % (45.5-73.1); Platelet Count Result 362 k/mm3 (150-375); Red Blood Count 4.63 M/mm3 (4.2-5.4); Red Cell Distribution Width 12.9 % (11.5-14.5); White Blood Count 10.2 K/mm3 (4.5-10.0)
[2021-12-26 12:54] LABS: Alanine Aminotransferase 28 U/L (6-35); Albumin Level 4.7 g/dL (3.5-5.1); Alkaline Phosphatase 41 U/L (38-126); Anion Gap 13 mmol/L (8-16); Aspartate Amino Transferase 31 U/L (14-36); Bilirubin,Total 0.4 mg/dL (0.2-1.3); Blood Urea Nitrogen 19 mg/dL (7-17); Calcium 9.9 mg/dL (8.4-10.2); Carbon Dioxide 24 mmol/L (22-30); Chloride 98 mmol/L (98-107); Estimated CRCL calculation 57 ml/min; Estimated Glomerular Filt Rate 41; Glucose 119 mg/dL (65-110); Potassium 4.1 mmol/L (3.4-5.0); Sodium 135 mmol/L (137-145)
--- NOTE | 2021-12-26 14:31 | ED.FEMALEGU ---
HPI - Female Genitourinary General Chief complaint: Urogenital-Female Stated complaint: L. flank pain Time Seen by Provider: 12/26/21 14:13 History of Present Illness HPI Narrative: Patient is a 66-year-old female here for evaluation of left flank pain over the past several days associated with nausea and vomiting. She states that she has a history of this sensation, for which she was hospitalized at the end of November when her CT scan showed possible pyelonephritis, but malignancy or other abnormality was not excluded. She then underwent renal ultrasound was that were negative for acute process. She was discharged and treated prophylactically for pyelonephritis with antibiotics with resolution of her symptoms. She states that her symptoms came back 4 days ago, but have eased up a little bit today without intervention. She is scheduled for repeat CT scan this week. She was sent from urgent care for the CT scan today. She denies any fevers, chills, syncope, chest pain, shortness of breath. Related Data Home Medications Medication Instructions Recorded Confirmed evening primrose oil 500 mg capsule 500 mg PO BID 11/11/19 12/26/21 atorvastatin 20 mg tablet 20 mg PO DAILY 12/03/21 12/26/21 fenofibrate micronized 134 mg 134 mg PO QPM 12/03/21 12/26/21 capsule calcium carbonate 600 mg calcium 600 mg PO DAILY 12/20/21 12/26/21 (1,500 mg) tablet (Calcium) esomeprazole magnesium 20 mg 20 mg PO DAILY 12/20/21 12/26/21 capsule,delayed release prcjnrdl-xfk-mehpf ac 400 1 tablet PO DAILY 12/20/21 12/26/21 mcg-calcium carb 500 mg-vit K1 20 mcg tablet (Women's 50 Plus Multivitamin) Allergies Allergy/AdvReac Type Severity Reaction Status Date / Time levofloxacin Allergy Unknown Muscle Verified 12/26/21 10:43 weakness cefdinir Allergy Joint Pain Verified 12/26/21 10:43 Review of Systems Review of Systems: Gen.: Denies fevers or chills Eyes: Denies eye pain or visual change ENT: Denies congestion Respiratory: Denies shortness of breath or cough CV: Denies chest pain or palpitations GI: Reports nausea and vomiting. Denies abdominal pain or diarrhea denies burning, urgency, frequency or hematuria Musculoskeletal: Reports left flank pain Neuro: Denies numbness, tingling, weakness or focal weakness Skin: Denies rash Except as documented, all other systems reviewed and negative PMFSH Past Medical History Medical History Allergies Arthritis Essential (primary) hypertension GERD with esophagitis Hyperlipidemia, unspecified Hypertension Insomnia Melanoma Sebaceous cyst Spinal stenosis of lumbar region with radiculopathy Surgical History Surgical History History of epidermal inclusion cyst excision Family History Family History Grandparent Diabetes mellitus Family history of cardiovascular disease Acute myocardial infarction Father Family history of osteoporosis Cerebrovascular accident Family history of primary malignant neoplasm of liver Family history of malignant neoplasm of urinary bladder Mother Hypertension Other Family history of arthritis Family history of malignant neoplasm Social History Social History Smoking status: Never smoker Alcohol intake: never Substance use: never Substance use type: does not use Gender identity (if verbalized by the patient): Female Spiritual care concerns: No Exam Narrative: APPEARANCE: Well appearing, no pain in distress, well-nourished. Head: Normocephalic and atraumatic. EYES: PERRLA/EOMI, conjunctivae clear NOSE: No nasal drainage EARS: External ear normal in appearance THROAT: Oropharynx is clear. Mucous membranes are moist. NECK: Supple. No adenopathy, no masses. RESPI
[2021-12-26] MEDS: SODIUM CHLORIDE 0.9% IV 1,000 ML 999 ML IV CONT ×2 (14:52→16:24)
[2021-12-26 14:53] LABS: Appearance Urine Slightly Cloudy (Clear); Bilirubin Urine 1+ (Negative); Blood Urine Negative (Negative); Color Urine Yellow (Yellow); Glucose Urine UA Negative (Negative); Ketones Urine Trace mg/dL (Negative); Leukocyte Esterase Ur 1+ LEU/UL (Negative); Nitrate Urine Negative (Negative); Protein Urine 1+ mg/dL (Negative); Specific Grav Ur >= 1.030 (1.001-1.035)
[2021-12-26 15:15] LABS: Bacteria Urine Trace /hpf; Calcium Oxalate Crystals Urine Present /hpf; Hyaline Casts Urine 30-49 /lpf; Mucus Urine Moderate /lpf; Squamous Epithelial Cell Urine Many /hpf (Few); WBC Urine 31-50 /hpf
[2021-12-26 15:22] LABS: Add Urine Microscopic? YES
--- NOTE | 2021-12-26 17:00 | PC.NURSE ---
called lab and spoke with Francine to add on BMP @[id number] -GV
[2021-12-26 17:22] LABS: Anion Gap 11 mmol/L (8-16); Blood Urea Nitrogen 19 mg/dL (7-17); Carbon Dioxide 25 mmol/L (22-30); Chloride 98 mmol/L (98-107); Estimated CRCL calculation 57 ml/min; Estimated Glomerular Filt Rate 41; Glucose 122 mg/dL (65-110); Potassium 4.1 mmol/L (3.4-5.0); Sodium 134 mmol/L (137-145)
[2021-12-26 18:08] LABS: Anion Gap 9 mmol/L (8-16); Blood Urea Nitrogen 18 mg/dL (7-17); Calcium 8.9 mg/dL (8.4-10.2); Carbon Dioxide 24 mmol/L (22-30); Chloride 101 mmol/L (98-107); Estimated CRCL calculation 61 ml/min; Estimated Glomerular Filt Rate 45; Glucose 101 mg/dL (65-110); Potassium 3.6 mmol/L (3.4-5.0); Sodium 134 mmol/L (137-145)
== END 2021-12-26 18:28 | disposition home or self-care (01) ==
PROVIDERS: Emergency Medicine; Physician Assistant; Emergency Provider Emergency Medicine; PCP Family Medicine
DX: R10.9 Unspecified abdominal pain (principal); I10 Essential (primary) hypertension; E78.5 Hyperlipidemia, unspecified; K21.00 Gastro-esophageal reflux disease with esophagitis, without bleeding; M19.90 Unspecified osteoarthritis, unspecified site; Z85.820 Personal history of malignant melanoma of skin
CPT/HCPCS: 36415; 74177; 80048; 80053; 81001; 85025; 87086; 87088; 96360; 96361; 99284; J7030; Q9967